=== PATIENT | female | born 1975 | race Caucasian/White ===

== ENCOUNTER 2018-09-13 08:36 | Emergency (ER) | payer OTHER ==
[~2018-09-13] VITALS: Ht 165.1 cm; Wt 81.8 kg
[2018-09-13] MEDS ORDERED: OxyCODONE HCL/ACETAMINOPHEN 5-325 MG TABLET PO ONE (11:30)
[2018-09-13] MEDS ORDERED: IBUPROFEN 600 MG TABLET PO ONE (11:30)
[2018-09-13 13:37] VITALS: BP 137/78
== END 2018-09-13 13:40 | disposition home or self-care (01) ==
LOC: EMS 08:37
DX: S83.92XA Sprain of unspecified site of left knee, initial encounter (principal); X50.0XXA Overexertion from strenuous movement or load, initial encounter; Y93.E8 Activity, other personal hygiene; Y92.89 Other specified places as the place of occurrence of the external cause; Y99.0 Civilian activity done for income or pay
CPT/HCPCS: 29505